=== PATIENT | female | born 1935 | race Caucasian/White ===

== ENCOUNTER → 2016-11-04 | Outpatient (CLI) | payer MEDICARE, MEDICAID ==
[~2016-11-04] MED LIST: AMLO2.5T45 PO; CITA20TA11 PO; LEVO75TA7 PO
== END | disposition home or self-care (01) ==
LOC: CARD 13:50
PROVIDERS: ATTEND Physician Assistant Medical
DX: I49.3 Ventricular premature depolarization (principal); I45.10 Unspecified right bundle-branch block; R94.31 Abnormal electrocardiogram [ECG] [EKG]
CPT/HCPCS: 93005

== ENCOUNTER 2016-12-22 05:42 | Day surgery (SDC) | payer MEDICARE, MEDICAID ==
[~2016-12-22] VITALS: Ht 160 cm; Wt 54.4 kg
[2016-12-22] MEDS ORDERED: TROPICAMIDE 1% OPHTH DROPS 15ML LEFTEYE ONE (06:15)
[2016-12-22] MEDS ORDERED: PHENYLEPHRINE HCL 10% OPHTH DROPS 5ML LEFTEYE ONE (06:15)
[2016-12-22] MEDS ORDERED: CYCLOPENTOLATE HCL 1% OPHTH DROPS 2ML LEFTEYE ONE (06:15)
[2016-12-22] MEDS ORDERED: SODIUM CHLORIDE 0.9% 1,000 ML IV SCH (06:40)
[2016-12-22 06:56] LABS: BASOPHILS % 0.6 % (0.0-2.0); EOSINOPHILS % 3.1 % (0.0-5.0); HEMATOCRIT. 42.6 % (36.0-48.0); HEMOGLOBIN. 14.5 g/dL (12.0-16.0); LYMPHOCYTES % 39.3 % (20.0-50.0); MEAN CORPUSCULAR HEMOGLOBIN 30.3 pg (28.0-32.0); MEAN CORPUSCULAR VOLUME 89.4 fL (81.0-99.0); MEAN PLATELET VOLUME 9.6 fl (7.4-10.4); MONOCYTES % 8.1 % (2.0-8.0); NEUTROPHILS % 48.9 % (40.0-76.0); PLATELET 149 x1000/uL (130-400); RED BLOOD CELL COUNT 4.76 mill/uL (4.2-5.4); RED CELL DISTRIBUTION WIDTH 13.5 % (11.6-14.6)
[2016-12-22] MEDS ORDERED: BALANCED SALT IRRIG SOLN COMB1 500ML OP SCH (07:30)
[2016-12-22] MEDS ORDERED: HYALURONATE SODIUM 14 MG/ML 0.85ML SYRINGE IO ONE (07:55)
[2016-12-22] MEDS ORDERED: TRAM50TA3 PO (09:47)
[2016-12-22] MEDS ORDERED: GABA-529 PO (09:47)
[2016-12-22] MEDS ORDERED: KETOROLAC 30MG/ML VIAL IV NR ×2 (10:45→11:30)
[2016-12-22 10:55] VITALS: BP 151/62
[2016-12-22] MEDS ORDERED: LIDOCAINE HCL/PF 2% 20 MG/ML 10ML VIAL ONE (11:36)
[2016-12-22] MEDS ORDERED: BALANCED SALT IRRIG SOLN 15ML ONE (11:36)
[2016-12-22] MEDS ORDERED: BUPIVACAINE HCL/PF 0.75% (7.5MG/ML) 10ML ONE (11:36)
[2016-12-22] MEDS ORDERED: TETRACAINE 0.5% OPHTH DROPS 4ML ONE (11:36)
[2016-12-22] MEDS ORDERED: LIDOCAINE HCL 2%/EPINEPHRINE 1:100,000 20 ML VIAL INFIL ONE (11:36)
[2016-12-22] MEDS ORDERED: CIPROFLOXACIN 0.3% OPHTH SOLN 2.5ML ONE (11:36)
[2016-12-22] MEDS ORDERED: PILOCARPINE HCL 2% OPHTH DROPS 15ML ONE (11:36)
== END 2016-12-22 11:55 | disposition home or self-care (01) ==
LOC: OR 05:42
PROVIDERS: ATTEND Ophthalmology
DX: H25.9 Unspecified age-related cataract (principal); I10 Essential (primary) hypertension; E03.9 Hypothyroidism, unspecified; Z90.49 Acquired absence of other specified parts of digestive tract
CPT/HCPCS: 36415; 66984; 80048; 85025; 93005; J1885; J3490; J7030; V2632

== ENCOUNTER 2019-03-21 17:48 | Emergency (ER) | payer MEDICARE, MEDICAID ==
[~2019-03-21] VITALS: Ht 167.6 cm; Wt 53.0 kg
[~2019-03-21 17:48] MED LIST changes: -CITA20TA11 PO; +CITA20TA75 PO; +GABA-529 PO; +TRAM50TA3 PO
[2019-03-21] MEDS ORDERED: ONDANSETRON HCL 4MG/2ML INJ IV STA (18:21)
[2019-03-21] MEDS ORDERED: MORPHINE SULFATE 4 MG/ML CPJ (NOT FOR IM USE) IV STA (18:21)
[2019-03-21 20:55] LABS: BASOPHILS % 0.2 % (0.0-2.0); EOSINOPHILS % 0.7 % (0.0-5.0); HEMATOCRIT. 41.3 % (36.0-48.0); HEMOGLOBIN. 13.7 g/dL (12.0-16.0); LYMPHOCYTES % 9.1 % (20.0-50.0); MEAN CORPUSCULAR HEMOGLOBIN 29.4 pg (28.0-32.0); MEAN CORPUSCULAR VOLUME 88.6 fL (81.0-99.0); MEAN PLATELET VOLUME 9.7 fl (7.4-10.4); MONOCYTES % 5.4 % (2.0-8.0); NEUTROPHILS % 84.6 % (40.0-76.0); PLATELET 157 x1000/uL (130-400); RED BLOOD CELL COUNT 4.66 mill/uL (4.2-5.4); RED CELL DISTRIBUTION WIDTH 13.7 % (11.6-14.6)
[2019-03-21 20:57] LABS: CHLORIDE 106 mEq/L (98-107)
[2019-03-21] MEDS ORDERED: KETOROLAC 15MG/ML VIAL IV ONE (23:15)
[2019-03-21 23:20] VITALS: BP 143/57
== END 2019-03-21 23:25 | disposition home or self-care (01) ==
LOC: ER 17:48
DX: S42.295A Other nondisplaced fracture of upper end of left humerus, initial encounter for closed fracture (principal); S02.2XXA Fracture of nasal bones, initial encounter for closed fracture; S01.81XA Laceration without foreign body of other part of head, initial encounter; I10 Essential (primary) hypertension; E03.9 Hypothyroidism, unspecified; E78.00 Pure hypercholesterolemia, unspecified; Z87.19 Personal history of other diseases of the digestive system; Z79.899 Other long term (current) drug therapy; Z90.49 Acquired absence of other specified parts of digestive tract; Z90.89 Acquired absence of other organs; W01.0XXA Fall on same level from slipping, tripping and stumbling without subsequent striking against object, initial encounter; Y93.89 Activity, other specified; Y92.89 Other specified places as the place of occurrence of the external cause; Y99.8 Other external cause status
CPT/HCPCS: 36415; 70450; 70486; 71045; 72125; 73030; 80053; 83880; 84484; 85025; 93005; 96374; 96375; 99284; J1885; J2270; J2405; A4565

== ENCOUNTER 2020-04-08 00:57 | Inpatient (IN) | payer MEDICARE, MEDICAID ==
[~2020-04-08] VITALS: Ht 152.4 cm; Wt 50.0 kg
[2020-04-08] MEDS ORDERED: DEXAMETHASONE 4MG/ML 1ML VIAL IV ONE (01:15)
[2020-04-08 02:52] LABS: BASOPHILS % 0.4 % (0.0-2.0); HEMOGLOBIN. 12.4 g/dL (12.0-16.0); LYMPHOCYTES % 21.8 % (20.0-50.0); MEAN CORPUSCULAR HEMOGLOBIN 29.7 pg (28.0-32.0); MEAN CORPUSCULAR VOLUME 88.4 fL (81.0-99.0); MONOCYTES % 13.2 % (2.0-8.0); NEUTROPHILS % 64.6 % (40.0-76.0); PLATELET 100 x1000/uL (130-400); RED BLOOD CELL COUNT 4.18 mill/uL (4.2-5.4); RED CELL DISTRIBUTION WIDTH 13.5 % (11.6-14.6)
[2020-04-08 02:58] LABS: CHLORIDE 100 mEq/L (98-107)
[2020-04-08 03:00] LABS: D-DIMER 0.61 mg/L FEU (<0.50); PROTHROMBIN TIME 10.4 sec (9.6-11.0)
[2020-04-08 03:07] LABS: CREATINE KINASE 123 IU/L (26-192)
[2020-04-08] MEDS ORDERED: ENOXAPARIN 60MG/0.6ML SYR SUBCUT NR (05:00)
[2020-04-08 11:20] LABS: CLARITY URINE CLEAR (CLEAR); COLOR URINE YELLOW (YELLOW); KETONES URINE NEGATIVE (NEGATIVE); LEUKOCYTE ESTERASE URINE 2+ (NEGATIVE); NITRITE URINE NEGATIVE (NEGATIVE); OCCULT BLOOD URINE NEGATIVE (NEGATIVE); PROTEIN URINE NEGATIVE (NEGATIVE); SPECIFIC GRAVITY URINE 1.011 (1.005-1.030); UROBILINOGEN URINE 0.2 E.U./dL (0.2-1.0)
[2020-04-08] MEDS ORDERED: DOCUSATE SODIUM 100MG CAPSULE PO PRN (12:00)
[2020-04-08] MEDS ORDERED: MORPHINE SULFATE 2 MG/ML CPJ (NOT FOR IM USE) IV PRN (12:00)
[2020-04-08] MEDS ORDERED: ONDANSETRON HCL 4MG/2ML INJ IV PRN (12:00)
[2020-04-08] MEDS: AZITHROMYCIN 500 MG in DEXT 5% WATER 250 ML IV SCH (14:10)
[2020-04-08] MEDS: CEFTRIAXONE 1 G PREMIX 50 ML IV SCH (14:10)
[2020-04-08] MEDS: DEXAMETHASONE 10 MG/ML VIAL IV SCH (14:10)
[2020-04-08] MEDS: SODIUM CHLORIDE 0.45% 1,000 ML IV SCH (17:23)
[2020-04-08] MEDS: LORAZEPAM 2MG/ML CPJ IV PRN (20:02)
[2020-04-08] MEDS: GABAPENTIN 100MG CAPSULE PO SCH (23:00)
[2020-04-09] MEDS: LORAZEPAM 2MG/ML CPJ IV PRN (02:43)
[2020-04-09] MEDS: SODIUM CHLORIDE 0.45% 1,000 ML IV SCH ×2 (05:00→13:00)
[2020-04-09 07:01] LABS: BASOPHILS % 0.2 % (0.0-2.0); HEMATOCRIT. 38.8 % (36.0-48.0); LYMPHOCYTES % 10.8 % (20.0-50.0); MEAN CORPUSCULAR HEMOGLOBIN 29.6 pg (28.0-32.0); MEAN CORPUSCULAR VOLUME 88.4 fL (81.0-99.0); MONOCYTES % 9.6 % (2.0-8.0); NEUTROPHILS % 79.4 % (40.0-76.0); PLATELET 120 x1000/uL (130-400); RED BLOOD CELL COUNT 4.39 mill/uL (4.2-5.4); RED CELL DISTRIBUTION WIDTH 13.6 % (11.6-14.6)
[2020-04-09 07:04] LABS: CHLORIDE 107 mEq/L (98-107)
[2020-04-09 07:10] LABS: LDL CHOLESTEROL 86 mg/dL (5-100)
[2020-04-09 07:12] LABS: HDL CHOLESTEROL 46 mg/dL (40-59)
[2020-04-09] MEDS ORDERED: ENOXAPARIN 40MG/0.4ML SYR SUBCUT SCH (09:00)
[2020-04-09] MEDS: DEXAMETHASONE 10 MG/ML VIAL IV SCH (10:00)
[2020-04-09] MEDS: AZITHROMYCIN 500 MG in DEXT 5% WATER 250 ML IV SCH (14:00)
[2020-04-09] MEDS: CEFTRIAXONE 1 G PREMIX 50 ML IV SCH (15:30)
[2020-04-09] MEDS: GABAPENTIN 100MG CAPSULE PO SCH ×2 (15:30→17:00)
[2020-04-09] MEDS: LEVOTHYROXINE SODIUM 75MCG TABLET PO SCH (15:30)
[2020-04-09] MEDS: AMLODIPINE 2.5MG TABLET PO SCH (15:30)
[2020-04-09] MEDS: ERGOCALCIFEROL 50000UNITS CAPSULE PO SCH (17:00)
[2020-04-10 04:00] VITALS: BP 156/78
[2020-04-10] MEDS: SODIUM CHLORIDE 0.45% 1,000 ML IV SCH ×3 (05:00→22:24)
[2020-04-10] MEDS ORDERED: CITA10SO PO (06:16)
[2020-04-10] MEDS ORDERED: LEVO75TA7 PO (06:16)
[2020-04-10] MEDS ORDERED: AMLO5TAB88 PO (06:16)
[2020-04-10] MEDS ORDERED: *PATIENT'S OWN MEDICATION STORAGE XX SCH (06:45)
[2020-04-10 08:00] VITALS: BP 143/70
[2020-04-10] MEDS ORDERED: PNEUMOCOCCAL 23-VAL P-SAC VAC 0.5 ML IM ONE (08:00)
[2020-04-10] MEDS: ENOXAPARIN 30MG/0.3ML SYR SUBCUT SCH (09:00)
[2020-04-10] MEDS: GABAPENTIN 100MG CAPSULE PO SCH ×2 (10:15→19:02)
[2020-04-10] MEDS: LEVOTHYROXINE SODIUM 75MCG TABLET PO SCH (10:16)
[2020-04-10] MEDS: AZITHROMYCIN 500 MG TABLET PO SCH (10:16)
[2020-04-10] MEDS: AMLODIPINE 2.5MG TABLET PO SCH (10:16)
[2020-04-10] MEDS: DEXAMETHASONE 10 MG/ML VIAL IV SCH (10:17)
[2020-04-10 12:00] VITALS: BP 143/63
[2020-04-10 16:00] VITALS: BP 160/82
[2020-04-10 20:00] VITALS: BP 128/53
[2020-04-11] VITALS: BP 129/79
[2020-04-11 04:00] VITALS: BP 141/68
[2020-04-11] MEDS: SODIUM CHLORIDE 0.45% 1,000 ML IV SCH ×2 (05:06→12:43)
[2020-04-11] MEDS: LEVOTHYROXINE SODIUM 75MCG TABLET PO SCH (06:33)
[2020-04-11 08:00] VITALS: BP 135/87
[2020-04-11] MEDS: ENOXAPARIN 30MG/0.3ML SYR SUBCUT SCH (09:00)
[2020-04-11] MEDS: DEXAMETHASONE 10 MG/ML VIAL IV SCH (10:48)
[2020-04-11] MEDS: GABAPENTIN 100MG CAPSULE PO SCH ×2 (10:48→20:08)
[2020-04-11] MEDS: AZITHROMYCIN 500 MG TABLET PO SCH (10:48)
[2020-04-11] MEDS: AMLODIPINE 2.5MG TABLET PO SCH (10:48)
[2020-04-11] MEDS: ACETAMINOPHEN 325MG TABLET PO PRN ×2 (12:42→16:08)
[2020-04-11 14:12] LABS: BG BASE EXCESS -0.8 mmol/L (-2.0-2.0); BG CARBOXYHEMOGLOBIN 0.8 % (0.5-1.5); BG DEOXYHEMOGLOBIN 17.9 % (0.0-5.0); BG METHEMOGLOBIN 0.2 % (0.0-1.5); BG OXYGEN SATURATION 81.9 % (92.0-98.5); BG OXYHEMOGLOBIN 81.1 % (94.0-97.0); BG PH 7.468 (7.350-7.450); BG PO2 44.1 mmHg (75.0-100.0); BG TOTAL HEMOGLOBIN 13.9 g/dL (12.0-18.0)
[2020-04-11 16:00] VITALS: BP 136/68
[2020-04-11] MEDS ORDERED: FUROSEMIDE 40MG/4ML VIAL IVP NR (16:00)
[2020-04-11 20:00] VITALS: BP 137/59
[2020-04-12] VITALS: BP 110/70
[2020-04-12 04:00] VITALS: BP 128/62
[2020-04-12] MEDS: SODIUM CHLORIDE 0.45% 1,000 ML IV SCH ×3 (04:00→12:06)
[2020-04-12] MEDS: LEVOTHYROXINE SODIUM 75MCG TABLET PO SCH (05:14)
[2020-04-12 07:16] LABS: HEMATOCRIT. 38.4 % (36.0-48.0); HEMOGLOBIN. 12.9 g/dL (12.0-16.0); MEAN CORPUSCULAR HEMOGLOBIN 29.2 pg (28.0-32.0); MEAN CORPUSCULAR VOLUME 86.9 fL (81.0-99.0); MEAN PLATELET VOLUME 10.1 fl (7.4-10.4); PLATELET 142 x1000/uL (130-400); RED BLOOD CELL COUNT 4.41 mill/uL (4.2-5.4); RED CELL DISTRIBUTION WIDTH 13.7 % (11.6-14.6)
[2020-04-12 07:41] LABS: CHLORIDE 108 mEq/L (98-107)
[2020-04-12 08:00] VITALS: BP 177/98
[2020-04-12] MEDS ORDERED: POTASSIUM CHLORIDE 20MEQ TABLET SR PO NR (11:24)
[2020-04-12] MEDS: DEXAMETHASONE 10 MG/ML VIAL IV SCH (11:58)
[2020-04-12] MEDS: AMLODIPINE 2.5MG TABLET PO SCH (11:59)
[2020-04-12] MEDS: GABAPENTIN 100MG CAPSULE PO SCH ×2 (11:59→19:01)
[2020-04-12] MEDS: ENOXAPARIN 30MG/0.3ML SYR SUBCUT SCH (11:59)
[2020-04-12] MEDS: AZITHROMYCIN 500 MG TABLET PO SCH (11:59)
[2020-04-12 12:00] VITALS: BP 167/65
[2020-04-12] MEDS: FUROSEMIDE 40MG/4ML VIAL IVP SCH (12:04)
[2020-04-12 13:46] LABS: PLATELET ESTIMATE NORMAL
[2020-04-12 16:00] VITALS: BP 163/70
[2020-04-12 20:00] VITALS: BP 150/65
[2020-04-13] VITALS: BP 137/72
[2020-04-13 04:00] VITALS: BP 134/59
[2020-04-13] MEDS: LEVOTHYROXINE SODIUM 75MCG TABLET PO SCH (06:32)
[2020-04-13 08:00] VITALS: BP 128/78
[2020-04-13 08:53] LABS: CHLORIDE 105 mEq/L (98-107)
[2020-04-13] MEDS: ENOXAPARIN 30MG/0.3ML SYR SUBCUT SCH (11:15)
[2020-04-13] MEDS: DEXAMETHASONE 10 MG/ML VIAL IV SCH (11:16)
[2020-04-13] MEDS: AMLODIPINE 2.5MG TABLET PO SCH (11:16)
[2020-04-13] MEDS: FUROSEMIDE 40MG/4ML VIAL IVP SCH (11:16)
[2020-04-13] MEDS: GABAPENTIN 100MG CAPSULE PO SCH ×2 (11:16→17:14)
[2020-04-13 12:00] VITALS: BP 155/67
[2020-04-13] MEDS ORDERED: MAGNESIUM 2 G PREMIX 50 ML IV SCH (13:00)
[2020-04-13] MEDS: MAGNESIUM OXIDE 400MG TABLET PO SCH (13:53)
[2020-04-13] MEDS: DILTIAZEM HCL 30MG TABLET PO SCH ×2 (13:53→21:14)
[2020-04-13 16:00] VITALS: BP 138/64
[2020-04-13 20:00] VITALS: BP 129/60
[2020-04-14] VITALS: BP 127/64
[2020-04-14 04:00] VITALS: BP 144/61
[2020-04-14] MEDS: DILTIAZEM HCL 30MG TABLET PO SCH ×2 (06:21→21:24)
[2020-04-14] MEDS: LEVOTHYROXINE SODIUM 75MCG TABLET PO SCH (06:21)
[2020-04-14 08:00] VITALS: BP 90/60
[2020-04-14 08:47] LABS: CHLORIDE 102 mEq/L (98-107)
[2020-04-14] MEDS: AMLODIPINE 2.5MG TABLET PO SCH (09:00)
[2020-04-14] MEDS: FUROSEMIDE 40MG/4ML VIAL IVP SCH (09:00)
[2020-04-14 10:15] LABS: HEMATOCRIT. 39.7 % (36.0-48.0); HEMOGLOBIN. 13.1 g/dL (12.0-16.0); MEAN CORPUSCULAR HEMOGLOBIN 28.8 pg (28.0-32.0); MEAN CORPUSCULAR VOLUME 87.6 fL (81.0-99.0); MEAN PLATELET VOLUME 11.1 fl (7.4-10.4); PLATELET 147 x1000/uL (130-400); RED BLOOD CELL COUNT 4.54 mill/uL (4.2-5.4); RED CELL DISTRIBUTION WIDTH 13.4 % (11.6-14.6)
[2020-04-14] MEDS: MAGNESIUM OXIDE 400MG TABLET PO SCH (10:15)
[2020-04-14] MEDS: ENOXAPARIN 30MG/0.3ML SYR SUBCUT SCH (10:15)
[2020-04-14] MEDS: DEXAMETHASONE 10 MG/ML VIAL IV SCH (10:15)
[2020-04-14] MEDS: GABAPENTIN 100MG CAPSULE PO SCH ×2 (10:16→16:03)
[2020-04-14 12:00] VITALS: BP 137/62
[2020-04-14 18:50] VITALS: BP 170/80
[2020-04-14] MEDS: CLONIDINE 0.1MG TABLET PO PRN (18:53)
[2020-04-14 20:00] VITALS: BP 124/60
[2020-04-14 23:29] LABS: PLATELET ESTIMATE NORMAL
[2020-04-15] VITALS: BP 104/50
[2020-04-15 04:00] VITALS: BP 117/58
[2020-04-15] MEDS: LEVOTHYROXINE SODIUM 75MCG TABLET PO SCH (06:14)
[2020-04-15 07:25] LABS: CHLORIDE 102 mEq/L (98-107)
[2020-04-15 07:26] LABS: HEMATOCRIT. 38.3 % (36.0-48.0); HEMOGLOBIN. 12.7 g/dL (12.0-16.0); MEAN CORPUSCULAR HEMOGLOBIN 28.9 pg (28.0-32.0); MEAN CORPUSCULAR VOLUME 87.1 fL (81.0-99.0); MEAN PLATELET VOLUME 10.6 fl (7.4-10.4); PLATELET 156 x1000/uL (130-400); RED CELL DISTRIBUTION WIDTH 13.6 % (11.6-14.6)
[2020-04-15 08:00] VITALS: BP 139/54
[2020-04-15] MEDS: FUROSEMIDE 40MG TABLET PO SCH (09:36)
[2020-04-15] MEDS: DILTIAZEM HCL 30MG TABLET PO SCH ×2 (09:36→21:17)
[2020-04-15] MEDS: DEXAMETHASONE 10 MG/ML VIAL IV SCH (09:36)
[2020-04-15] MEDS: GABAPENTIN 100MG CAPSULE PO SCH ×2 (09:36→17:30)
[2020-04-15] MEDS: MAGNESIUM OXIDE 400MG TABLET PO SCH (09:36)
[2020-04-15] MEDS: ENOXAPARIN 30MG/0.3ML SYR SUBCUT SCH (09:38)
[2020-04-15 12:53] LABS: PLATELET ESTIMATE NORMAL
[2020-04-15 14:00] VITALS: BP 114/69
[2020-04-15] MEDS: LORAZEPAM 2MG/ML CPJ IV PRN (17:30)
[2020-04-15 20:00] VITALS: BP 121/55
[2020-04-16] VITALS: BP 118/66
[2020-04-16 04:00] VITALS: BP 125/67
[2020-04-16] MEDS: LEVOTHYROXINE SODIUM 75MCG TABLET PO SCH (05:59)
[2020-04-16 08:00] VITALS: BP 137/60
[2020-04-16] MEDS: DEXAMETHASONE 10 MG/ML VIAL IV SCH (09:02)
[2020-04-16] MEDS: ENOXAPARIN 30MG/0.3ML SYR SUBCUT SCH (09:02)
[2020-04-16] MEDS: MAGNESIUM OXIDE 400MG TABLET PO SCH (09:03)
[2020-04-16] MEDS: FUROSEMIDE 40MG TABLET PO SCH (09:03)
[2020-04-16] MEDS: DILTIAZEM HCL 30MG TABLET PO SCH ×2 (09:03→20:40)
[2020-04-16] MEDS: GABAPENTIN 100MG CAPSULE PO SCH ×2 (09:09→17:20)
[2020-04-16 12:00] VITALS: BP 127/62
[2020-04-16] MEDS: LORAZEPAM 2MG/ML CPJ IV PRN ×2 (12:40→21:04)
[2020-04-16] MEDS: ERGOCALCIFEROL 50000UNITS CAPSULE PO SCH (17:20)
[2020-04-16 20:00] VITALS: BP 110/50
[2020-04-17] VITALS: BP 111/66
[2020-04-17 04:00] VITALS: BP 126/60
[2020-04-17] MEDS: LEVOTHYROXINE SODIUM 75MCG TABLET PO SCH (06:17)
[2020-04-17 06:37] LABS: HEMATOCRIT. 38.8 % (36.0-48.0); HEMOGLOBIN. 13.1 g/dL (12.0-16.0); MEAN CORPUSCULAR HEMOGLOBIN 29.4 pg (28.0-32.0); MEAN CORPUSCULAR VOLUME 87.1 fL (81.0-99.0); MEAN PLATELET VOLUME 10.3 fl (7.4-10.4); PLATELET 132 x1000/uL (130-400); RED BLOOD CELL COUNT 4.45 mill/uL (4.2-5.4); RED CELL DISTRIBUTION WIDTH 13.5 % (11.6-14.6)
[2020-04-17 06:43] LABS: CHLORIDE 104 mEq/L (98-107)
[2020-04-17] MEDS: ENOXAPARIN 30MG/0.3ML SYR SUBCUT SCH (10:23)
[2020-04-17] MEDS: DEXAMETHASONE 10 MG/ML VIAL IV SCH (10:24)
[2020-04-17] MEDS: DILTIAZEM HCL 30MG TABLET PO SCH ×2 (10:24→21:56)
[2020-04-17] MEDS: GABAPENTIN 100MG CAPSULE PO SCH ×2 (10:24→18:15)
[2020-04-17 10:33] VITALS: BP 135/65
[2020-04-17 14:03] VITALS: BP 122/65
[2020-04-17 16:20] VITALS: BP 125/65
[2020-04-17 20:00] VITALS: BP 150/73
[2020-04-17] MEDS: ACETAMINOPHEN 325MG TABLET PO PRN (20:32)
[2020-04-17] MEDS: LORAZEPAM 2MG/ML CPJ IV PRN (21:57)
[2020-04-17 22:15] LABS: PLATELET ESTIMATE NORMAL
[2020-04-18] VITALS: BP 116/65
[2020-04-18 04:00] VITALS: BP 142/63
[2020-04-18] MEDS: LEVOTHYROXINE SODIUM 75MCG TABLET PO SCH (06:04)
[2020-04-18 06:44] LABS: HEMATOCRIT. 38.8 % (36.0-48.0); MEAN CORPUSCULAR HEMOGLOBIN 29.3 pg (28.0-32.0); MEAN CORPUSCULAR VOLUME 87.3 fL (81.0-99.0); MEAN PLATELET VOLUME 11.1 fl (7.4-10.4); PLATELET 136 x1000/uL (130-400); RED BLOOD CELL COUNT 4.44 mill/uL (4.2-5.4); RED CELL DISTRIBUTION WIDTH 13.6 % (11.6-14.6)
[2020-04-18 08:00] VITALS: BP 152/62
[2020-04-18 08:15] LABS: CHLORIDE 103 mEq/L (98-107)
[2020-04-18] MEDS: DILTIAZEM HCL 30MG TABLET PO SCH ×2 (10:06→21:26)
[2020-04-18] MEDS: GABAPENTIN 100MG CAPSULE PO SCH ×2 (10:06→17:44)
[2020-04-18] MEDS: ENOXAPARIN 30MG/0.3ML SYR SUBCUT SCH (10:07)
[2020-04-18] MEDS: DEXAMETHASONE 10 MG/ML VIAL IV SCH (10:07)
[2020-04-18] MEDS: MULTIVITAMINS,THER W-MINERALS TABLET PO SCH (11:30)
[2020-04-18 12:00] VITALS: BP 150/81
[2020-04-18] MEDS ORDERED: THROAT LOZENGES-BENZOCAINE/MENTH/CETYLPYRD CL LOZENGES MM PRN (12:00)
[2020-04-18] MEDS ORDERED: DIGOXIN 500MCG/2ML AMP IV NR ×2 (13:00→15:30)
[2020-04-18 14:34] LABS: PLATELET ESTIMATE NORMAL
[2020-04-18 16:00] VITALS: BP 156/65
[2020-04-18] MEDS: PREDNISONE 20MG TABLET PO SCH (17:44)
[2020-04-18] MEDS: DIGOXIN 500MCG/2ML AMP IV SCH (17:45)
[2020-04-18 20:00] VITALS: BP 131/65
[2020-04-18] MEDS: LORAZEPAM 2MG/ML CPJ IV PRN (21:35)
[2020-04-19] VITALS: BP 129/62
[2020-04-19 04:00] VITALS: BP 139/53
[2020-04-19] MEDS: DILTIAZEM HCL 30MG TABLET PO SCH ×3 (06:07→21:00)
[2020-04-19] MEDS: LEVOTHYROXINE SODIUM 50MCG TABLET PO SCH (06:09)
[2020-04-19 06:54] LABS: HEMATOCRIT. 39.3 % (36.0-48.0); HEMOGLOBIN. 13.1 g/dL (12.0-16.0); MEAN CORPUSCULAR HEMOGLOBIN 29.7 pg (28.0-32.0); MEAN CORPUSCULAR VOLUME 88.6 fL (81.0-99.0); MEAN PLATELET VOLUME 10.7 fl (7.4-10.4); PLATELET 132 x1000/uL (130-400); RED BLOOD CELL COUNT 4.43 mill/uL (4.2-5.4); RED CELL DISTRIBUTION WIDTH 13.5 % (11.6-14.6)
[2020-04-19 07:39] LABS: CHLORIDE 105 mEq/L (98-107)
[2020-04-19 08:00] VITALS: BP 136/65
[2020-04-19] MEDS: PREDNISONE 20MG TABLET PO SCH (09:57)
[2020-04-19] MEDS: GABAPENTIN 100MG CAPSULE PO SCH ×2 (09:57→17:45)
[2020-04-19] MEDS: MULTIVITAMINS,THER W-MINERALS TABLET PO SCH (09:57)
[2020-04-19] MEDS: ENOXAPARIN 30MG/0.3ML SYR SUBCUT SCH (09:58)
[2020-04-19] MEDS: LORAZEPAM 2MG/ML CPJ IV PRN (09:58)
[2020-04-19 11:03] LABS: PLATELET ESTIMATE NORMAL
[2020-04-19 12:00] VITALS: BP 151/67
[2020-04-19 14:33] LABS: PHOSPHORUS 2.5 mg/dL (2.5-4.9)
[2020-04-19 16:00] VITALS: BP 143/69
[2020-04-19] MEDS: DIGOXIN 500MCG/2ML AMP IV SCH (17:46)
[2020-04-19 20:00] VITALS: BP 136/55
[2020-04-20] VITALS (7 sets, daily range): BP systolic 118–160; BP diastolic 46–83
[2020-04-20] MEDS: LEVOTHYROXINE SODIUM 50MCG TABLET PO SCH (06:30)
[2020-04-20] MEDS: DILTIAZEM HCL 30MG TABLET PO SCH ×3 (06:31→20:35)
[2020-04-20 07:30] LABS: HEMATOCRIT. 38.8 % (36.0-48.0); HEMOGLOBIN. 12.9 g/dL (12.0-16.0); MEAN CORPUSCULAR VOLUME 87.2 fL (81.0-99.0); MEAN PLATELET VOLUME 9.7 fl (7.4-10.4); PLATELET 115 x1000/uL (130-400); RED BLOOD CELL COUNT 4.44 mill/uL (4.2-5.4); RED CELL DISTRIBUTION WIDTH 13.7 % (11.6-14.6)
[2020-04-20] MEDS: CLONIDINE 0.1MG TABLET PO PRN (09:36)
[2020-04-20] MEDS: ENOXAPARIN 30MG/0.3ML SYR SUBCUT SCH (09:36)
[2020-04-20] MEDS: PREDNISONE 20MG TABLET PO SCH (09:36)
[2020-04-20] MEDS: MULTIVITAMINS,THER W-MINERALS TABLET PO SCH (09:36)
[2020-04-20] MEDS: GABAPENTIN 100MG CAPSULE PO SCH ×2 (09:36→17:17)
[2020-04-20 10:02] LABS: CHLORIDE 108 mEq/L (98-107)
[2020-04-20] MEDS: LORAZEPAM 2MG/ML CPJ IV PRN (11:08)
[2020-04-20] MEDS ORDERED: MULTIVITAMINS,THER W-MINERALS TABLET PO SCH (11:15)
[2020-04-20] MEDS: DIGOXIN 500MCG/2ML AMP IV SCH (17:17)
[2020-04-20] MEDS: ACETAMINOPHEN 325MG TABLET PO PRN (20:35)
[2020-04-20 21:01] LABS: PLATELET ESTIMATE DECREASED
[2020-04-21 02:02] VITALS: BP 109/51
[2020-04-21] MEDS: LEVOTHYROXINE SODIUM 50MCG TABLET PO SCH (05:33)
[2020-04-21] MEDS: DILTIAZEM HCL 30MG TABLET PO SCH ×3 (05:34→21:51)
[2020-04-21 07:02] LABS: CHLORIDE 110 mEq/L (98-107); HEMATOCRIT. 35.8 % (36.0-48.0); MEAN CORPUSCULAR HEMOGLOBIN 29.7 pg (28.0-32.0); MEAN CORPUSCULAR VOLUME 88.3 fL (81.0-99.0); MEAN PLATELET VOLUME 10.8 fl (7.4-10.4); PLATELET 95 x1000/uL (130-400); RED BLOOD CELL COUNT 4.06 mill/uL (4.2-5.4); RED CELL DISTRIBUTION WIDTH 13.6 % (11.6-14.6)
[2020-04-21 08:00] VITALS: BP 122/61
[2020-04-21] MEDS: MULTIVITAMINS,THER W-MINERALS TABLET PO SCH (08:19)
[2020-04-21] MEDS: GABAPENTIN 100MG CAPSULE PO SCH ×2 (08:19→16:22)
[2020-04-21] MEDS: PREDNISONE 20MG TABLET PO SCH (08:19)
[2020-04-21] MEDS: ENOXAPARIN 30MG/0.3ML SYR SUBCUT SCH (08:20)
[2020-04-21] MEDS ORDERED: LACTULOSE 20G/30ML UDC PO PRN (10:30)
[2020-04-21 12:00] VITALS: BP 114/84
[2020-04-21] MEDS: LORAZEPAM 0.5MG TABLET PO PRN ×2 (13:25→21:52)
[2020-04-21 16:00] VITALS: BP 125/54
[2020-04-21 16:28] LABS: PLATELET ESTIMATE DECREASED
[2020-04-21] MEDS: DIGOXIN 500MCG/2ML AMP IV SCH (17:23)
[2020-04-21 20:00] VITALS: BP 135/56
[2020-04-22] VITALS: BP 166/77
[2020-04-22 04:30] VITALS: BP 175/100
[2020-04-22] MEDS: DILTIAZEM HCL 30MG TABLET PO SCH ×3 (06:00→20:50)
[2020-04-22] MEDS ORDERED: VERAPAMIL HCL 2.5 MG/1 ML 2ML VIAL IV PRN (06:15)
[2020-04-22] MEDS: LEVOTHYROXINE SODIUM 50MCG TABLET PO SCH (07:10)
[2020-04-22 08:00] VITALS: BP 133/90
[2020-04-22] MEDS ORDERED: VERAPAMIL HCL 2.5 MG/1 ML 2ML VIAL IV NR (08:00)
[2020-04-22] MEDS ORDERED: VERAPAMIL HCL 2.5 MG/1 ML 2ML VIAL IV ONE (09:30)
[2020-04-22] MEDS: MULTIVITAMINS,THER W-MINERALS TABLET PO SCH (10:33)
[2020-04-22] MEDS: GABAPENTIN 100MG CAPSULE PO SCH ×2 (10:33→17:42)
[2020-04-22] MEDS: DEXAMETHASONE 10 MG/ML VIAL IV SCH (10:34)
[2020-04-22] MEDS: FUROSEMIDE 40MG/4ML VIAL IVP SCH (10:34)
[2020-04-22] MEDS: DILTIAZEM HCL 5MG/ML 5ML VIAL IV SCH ×3 (11:23→23:54)
[2020-04-22] MEDS: ENOXAPARIN 60MG/0.6ML SYR SUBCUT SCH (11:23)
[2020-04-22 12:00] VITALS: BP 147/74
[2020-04-22] MEDS ORDERED: ENOXAPARIN 30MG/0.3ML SYR SUBCUT SCH (13:00)
[2020-04-22] MEDS: LORAZEPAM 2MG/ML CPJ IV PRN ×2 (15:12→22:57)
[2020-04-22 16:00] VITALS: BP 124/53
[2020-04-22] MEDS: DIGOXIN 500MCG/2ML AMP IV SCH (17:42)
[2020-04-22 20:00] VITALS: BP 130/64
[2020-04-23] VITALS: BP 121/53
[2020-04-23 04:00] VITALS: BP 139/60
[2020-04-23] MEDS: DILTIAZEM HCL 5MG/ML 5ML VIAL IV SCH ×4 (06:35→18:28)
[2020-04-23] MEDS: DILTIAZEM HCL 30MG TABLET PO SCH ×3 (06:36→18:29)
[2020-04-23] MEDS: LEVOTHYROXINE SODIUM 50MCG TABLET PO SCH (07:09)
[2020-04-23] MEDS: LORAZEPAM 2MG/ML CPJ IV PRN (07:56)
[2020-04-23 08:00] VITALS: BP 114/58
[2020-04-23] MEDS: ENOXAPARIN 60MG/0.6ML SYR SUBCUT SCH (09:28)
[2020-04-23] MEDS: DEXAMETHASONE 10 MG/ML VIAL IV SCH (09:29)
[2020-04-23] MEDS: FUROSEMIDE 40MG/4ML VIAL IVP SCH (09:29)
[2020-04-23] MEDS: MULTIVITAMINS,THER W-MINERALS TABLET PO SCH (09:29)
[2020-04-23] MEDS: GABAPENTIN 100MG CAPSULE PO SCH ×2 (09:29→18:29)
[2020-04-23 12:00] VITALS: BP 105/44
[2020-04-23 16:00] VITALS: BP 100/45
[2020-04-23 17:30] LABS: HEMOGLOBIN. 12.4 g/dL (12.0-16.0); MEAN CORPUSCULAR VOLUME 88.7 fL (81.0-99.0); MEAN PLATELET VOLUME 10.8 fl (7.4-10.4); PLATELET 76 x1000/uL (130-400); RED BLOOD CELL COUNT 4.29 mill/uL (4.2-5.4); RED CELL DISTRIBUTION WIDTH 14.5 % (11.6-14.6)
[2020-04-23 17:50] LABS: CHLORIDE 108 mEq/L (98-107)
[2020-04-23] MEDS ORDERED: DIGOXIN 125MCG TABLET PO SCH (18:00)
[2020-04-23] MEDS: ERGOCALCIFEROL 50000UNITS CAPSULE PO SCH (18:29)
[2020-04-23] MEDS: METHYLPREDNISOLONE SOD SUCC 40 MG/ML VIAL IV SCH ×2 (18:29→22:05)
[2020-04-23 20:00] VITALS: BP 116/62
[2020-04-23 23:00] LABS: PLATELET ESTIMATE DECREASED
[2020-04-24] VITALS: BP_SYST 112; BP_SYST 116; BP_DIAS 55; BP_DIAS 62
[2020-04-24] MEDS: DILTIAZEM HCL 5MG/ML 5ML VIAL IV SCH ×2 (00:27→05:53)
[2020-04-24] MEDS: DILTIAZEM HCL 30MG TABLET PO SCH ×3 (00:30→11:18)
[2020-04-24 04:00] VITALS: BP 110/55
[2020-04-24] MEDS: METHYLPREDNISOLONE SOD SUCC 40 MG/ML VIAL IV SCH ×2 (05:51→15:11)
[2020-04-24] MEDS: LEVOTHYROXINE SODIUM 50MCG TABLET PO SCH (06:52)
[2020-04-24 07:00] LABS: HEMATOCRIT. 38.8 % (36.0-48.0); HEMOGLOBIN. 12.7 g/dL (12.0-16.0); MEAN CORPUSCULAR HEMOGLOBIN 29.1 pg (28.0-32.0); MEAN CORPUSCULAR VOLUME 89.2 fL (81.0-99.0); PLATELET 81 x1000/uL (130-400); RED BLOOD CELL COUNT 4.35 mill/uL (4.2-5.4); RED CELL DISTRIBUTION WIDTH 14.5 % (11.6-14.6)
[2020-04-24 07:27] LABS: CHLORIDE 110 mEq/L (98-107)
[2020-04-24] MEDS: ENOXAPARIN 60MG/0.6ML SYR SUBCUT SCH (09:00)
[2020-04-24] MEDS: MULTIVITAMINS,THER W-MINERALS TABLET PO SCH (09:58)
[2020-04-24] MEDS: GABAPENTIN 100MG CAPSULE PO SCH (09:58)
[2020-04-24] MEDS: LORAZEPAM 2MG/ML CPJ IV PRN (10:59)
[2020-04-24] MEDS ORDERED: DIGOXIN 500MCG/2ML AMP IV PRN (12:45)
[2020-04-24 14:34] LABS: PLATELET ESTIMATE DECREASED
[2020-04-24 15:00] VITALS: BP 121/53
== END 2020-04-24 17:00 | disposition hospice, home (50) | DRG 871 ==
LOC: ER 00:57 → 8WST 02:53 → ENRESERV 04-09 08:17 → SUPCPDRO 04-09 10:20 → ENRESERV 04-09 17:58
PROVIDERS: ADMIT Internal Medicine Nephrology; ATTEND Internal Medicine Nephrology
DX: A41.89 Other specified sepsis (principal); U07.1 COVID-19; J96.01 Acute respiratory failure with hypoxia; J12.82 Pneumonia due to coronavirus disease 2019; E87.1 Hypo-osmolality and hyponatremia; E46 Unspecified protein-calorie malnutrition; I47.1 Supraventricular tachycardia; I48.92 Unspecified atrial flutter; E03.9 Hypothyroidism, unspecified; E78.5 Hyperlipidemia, unspecified; E86.1 Hypovolemia; I10 Essential (primary) hypertension; D69.6 Thrombocytopenia, unspecified; Z68.21 Body mass index [BMI] 21.0-21.9, adult; E83.42 Hypomagnesemia; F41.9 Anxiety disorder, unspecified; I25.10 Atherosclerotic heart disease of native coronary artery without angina pectoris; I45.10 Unspecified right bundle-branch block; Z51.5 Encounter for palliative care; I48.91 Unspecified atrial fibrillation; R74.01 Elevation of levels of liver transaminase levels; F32.9 Major depressive disorder, single episode, unspecified; I49.1 Atrial premature depolarization; Z86.11 Personal history of tuberculosis; Z90.89 Acquired absence of other organs; Z90.49 Acquired absence of other specified parts of digestive tract; Z90.10 Acquired absence of unspecified breast and nipple; Z79.899 Other long term (current) drug therapy
CPT/HCPCS: 36415; 36600; 71045; 80048; 80053; 80061; 81003; 82040; 82330; 82375; 82550; 82805; 82962; 83605; 83615; 83735; 83880; 83970; 84100; 84145; 84443; 84484; 85025; 85379; 85384; 86140; 87635; 87804; 93005; 93970; 96365; 96366; 96368; 96372; 96375; 96376; 99291; C1893; J0456; J0696; J1100; J1160; J1650; J1940; J2060; J2920; J3475; J3490; J7060; J7512